=== PATIENT | female | born 1935 | race Caucasian/White ===

== ENCOUNTER 2021-01-13 00:12 | Observation (INO) ==
[2021-01-13] MEDS ORDERED: 0.9 % SODIUM CHLORIDE 1,000 ML IV ONE (00:21)
--- NOTE | 2021-01-13 00:26 | Emergency Department Note ---
HPI General Chief complaint: Syncope Stated complaint: fall Time Seen by Provider: 01/13/21 00:21 Source: patient and EMS Mode of arrival: EMS Limitations: no limitations History of Present Illness HPI Narrative: 85-year-old female with past medical history of afib, pacemaker, and dementia presenting after a syncopal episode. Patient was discharged from the ED earlier in the evening after right-sided epistaxis. The bleeding was controlled and she went home with her son. When she got home she was trying to get up to go to the bathroom when she fell out of the chair and forward onto the floor. She does not think she hit her head or passed out, however on EMS arrival they report she was unconscious until she was loaded into the ambulance. Patient is awake and alert here. She endorses pain in her left hip and left knee. She also endorses mild right-sided posterior neck pain and a mild headache. Denies dizziness, chest pain, shortness of breath, abdominal pain, or other extremity pain. She has chronic low back pain which is unchanged. She does endorse some urinary frequency. She is on Eliquis for afib. Patient states she may have swallowed a lot of blood today while she was having epistaxis. No recent fever, cough, or shortness of breath. Related Data Home Medications Medication Instructions Recorded Confirmed nitroglycerin 0.4 mg sublingual 0.4 mg SL PRN PRN 06/28/17 09/12/20 tablet apixaban 5 mg tablet 5 mg PO BID 10/22/17 09/12/20 omega-3 fatty acids-fish oil PO QDAY 10/16/18 09/12/20 donepezil 5 mg tablet 10 mg PO QDAY tab 04/14/19 09/12/20 memantine 10 mg tablet 10 mg PO BID 07/14/19 09/12/20 potassium chloride 10 mEq 20 meq PO DAILY tab 07/14/19 09/12/20 tablet,extended release choline [id number] tab PO 11/17/19 09/12/20 tablet Previous Rx's Medication Instructions Recorded blood sugar diagnostic (Contour #50 each 09/20/20 Next Test Strips) blood-glucose meter #1 each 09/20/20 alendronate 70 mg tablet 70 mg PO QWEEK #14 tab 09/29/20 sitagliptin 50 mg tablet (Januvia) 50 mg PO QDAY #30 tab 11/17/20 losartan 100 See Rx Instructions .ROUTE 12/14/20 mg-hydrochlorothiazide 12.5 mg .COMPLEX #90 tab tablet atorvastatin 10 mg tablet See Rx Instructions .ROUTE 01/10/21 .COMPLEX #30 tab metoprolol succinate 100 mg See Rx Instructions .ROUTE 01/10/21 tablet,extended release 24 hr .COMPLEX #30 tab oxybutynin chloride 10 mg See Rx Instructions .ROUTE 01/10/21 tablet,extended release 24 hr .COMPLEX #30 tab Allergies Allergy/AdvReac Type Severity Reaction Status Date / Time WAYNE Inhibitors Allergy Unknown Cough Verified 01/12/21 19:04 Sulfa (Sulfonamide AdvReac Unknown Itching Verified 01/12/21 19:04 Antibiotics) Review of Systems ROS ROS Narrative: Narrative: Constitutional: Denies fever or chills Eyes: Denies vision change ENT ED: Denies throat pain Cardiovascular: Reports syncope; Denies chest pain or palpitations Respiratory: Denies shortness of breath or cough Gastrointestinal: Denies abdominal pain, nausea or vomiting Genitourinary: Reports frequency; Denies dysuria Musculoskeletal: Reports back pain and joint pain Integumentary: Denies rash Neurological: Reports headache and weakness; Denies numbness or dizziness Psychiatric: Denies anxiety Hematological/Lymphatic: Reports easy bleeding PFSH Narrative Patient History Narrative: Narrative: Medical/Surgical/Family History All Active Problems (Updated 01/13/21 @ 05:11 by Aleksandr Neumann MD) Right-sided epistaxis (Acute) Syncope (Acute) Right-sided epistaxis (Acute) Weakness (Acute) Leg edema, right (Acute) Abbott's palsy (Acute) Urinary urgency (Acute) Dementia (Chronic) Precancerous skin lesion (Chronic) Tinnitus (Chronic) Angina pectoris (Chronic) Arthralgia (Chronic) Dyspnea on exertion (Chronic) Fatigue (Chronic) Encounter for long-term (current) use of other medications (Chronic) Rotator cuff tear (Chronic) Sinus bradycardia (Chronic) Allergic dermatitis (Chronic) DDD (degenerative disc disease) (Chronic) Hip pain (Chronic) Headache (Chronic) Other specified disorders of liver (Chronic) Grief reaction (Chronic) Urinary frequency (Chronic) Lumbar back pain (Chronic) Infiltrating ductal carcinoma of breast (Chronic) Depression with anxiety (Chronic) Knee pain, right (Chronic) Bradycardia (Chronic) Osteoporosis (Chronic) Memory loss (Chronic) Wellness examination (Chronic) Pain, joint, shoulder, left (Chronic) Bronchitis (Chronic) Hyperlipidemia (Chronic) Prediabetes (Chronic) HTN (hypertension) (Chronic) Knee pain, left (Chronic) Joint effusion, knee (Chronic) Orthostatic hypotension (Chronic) Hepatic hemangioma (Chronic) Hypokalemia (Chronic) Stable angina (Chronic) Atrial fibrillation with RVR (Chronic) Angina pectoris, unspecified (Chronic) Fall (Chronic) Syncope due to orthostatic hypotension (Chronic) Cardiac pacemaker in situ (Chronic) Liver mass (Chronic) Medical History (Updated 01/13/21 @ 05:11 by Aleksandr Neumann MD) Allergic dermatitis Angina pectoris Arthralgia Back pain Abbott's palsy Bradycardia Bronchitis DDD (degenerative disc disease) Dementia Depression with anxiety Dyspnea on exertion Encounter for long-term (current) use of other medications Fatigue Grief reaction Headache Hepatic hemangioma Hip pain HTN (hypertension) Hx of adenomatous colonic polyps Hyperlipidemia Hypokalemia Infiltrating ductal carcinoma of breast Joint effusion, knee Knee pain, left Knee pain, right Leg edema, right Lumbar back pain Memory loss Meningitis Orthostatic hypotension Osteoporosis Other specified disorders of liver Pain, joint, shoulder, left Precancerous skin lesion BACK, TO DR RAMIREZ Prediabetes Rotator cuff tear Sinus bradycardia Tinnitus Urinary frequency Urinary urgency Wellness examination Surgical History History of permanent cardiac pacemaker placement (~06/2017) Dual chamber pacer implantation History of surgery (~1956) 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 Post lumpectomy Rt outer quadrant. Dr Nevarez Hx of total hysterectomy (~1968) Family History Grandmother Diabetes Mother Breast cancer Depression Grandfather Depression Social History Smoking Status: Former smoker Alcohol Intake Frequency: does not drink Substance Use: does not use Exam Narrative Narrative: Narrative: General Limitations: no limitations General appearance: Present alert and in no apparent distress Head Head: Present atraumatic and normocephalic Eye Eye: Present normal appearance, PERRL and EOMI; Absent scleral icterus, con junctival injection or nystagmus ENT ENT: Present normal oropharynx, mucous membranes moist and other (Dried blood present in right nostril, no active bleeding) Neck Neck: Present normal inspection, trachea midline and tenderness (Over the midline cervical spine area) Chest Chest: Present normal inspection and symmetric chest wall rise Respiratory Respiratory: Present normal lung sounds bilaterally; Absent respiratory distress, wheezes, stridor or accessory muscle use Cardiovascular Cardiovascular: Present regular rate and normal rhythm; Absent systolic murmur or diastolic murmur Adbominal Abdominal: Present soft; Absent distention, tenderness, guarding, rebound, rigidity or mass Extremities Extremities: Present other Expanded Lower Extremity Hip/Pelvis: Present other (Tenderness over the lateral left hip. No deformity or ecchymosis noted.) Knee: Present other (Tenderness anteriorly of the left knee with mild swelling but no abrasions. She is able to flex and extend the knee however it is painful.) Ankle: Present normal inspection; Absent tenderness Foot/toe: Present normal inspection and other (2+ DP pulses bilaterally; lower extremity sensation intact); Absent tenderness Back Back: Present normal inspection and other (No deformities or bruising noted); Absent CVA tenderness (R), CVA tenderness (L) or spinous process tenderness Neurological Neurological: Present alert, CN II-XII intact and other (Oriented x2) Expanded Neurological Patient oriented to: Present person and place Speech: Absent dysarthria CEREBELLAR FUNCTION: finger to nose: Normal Motor strength - LUE: 5/5 Motor strength - RUE: 5/5 Motor strength - LLE: 5/5 Motor strength - RLE: 5/5 SENSORY EXAM UPPER EXTREMITY: Normal: light touch SENSORY EXAM LOWER EXTREMITY: Normal: light touch Coma Scale Eye Opening: Spontaneous Coma Scale Motor Response: Obeys Commands Coma Scale Verbal Response: Oriented Coma Scale Total: 15 Psychiatric Psychiatric: Present normal affect and normal mood Skin Skin: Present warm (WNL) and dry Course Consultations Consultation #1: Dr. Addison, hospitalist Time: 03:57 Vital Signs Vital signs: Vital Signs Temperature 97.4 F 01/13/21 00:17 Pulse Rate 69 01/13/21 00:17 Respiratory Rate 16 01/13/21 00:17 Blood Pressure 134/77 01/13/21 00:17 Pulse Oximetry (%) 94 01/13/21 00:17 Temperature 97.4 F 01/13/21 04:46 Pulse Rate 67 01/13/21 04:46 Respiratory Rate 16 01/13/21 04:46 Blood Pressure 112/74 01/13/21 04:46 Pulse Oximetry (%) 95 01/13/21 04:46 MDM MDM Narrative Medical decision making narrative: 85-year-old female presenting after a syncopal episode and fall. She was reportedly unconscious at the scene for a few minutes. She is awake and at her baseline here in the ED. EKG with no ischemic changes. Will obtain labs, urine dip, imaging, and reassess. Normal saline bolus ordered. Labs notable for hemoglobin of 11.8, her baseline seems to be around 14. Drop in hemoglobin likely due to acute blood loss from epistaxis. While in the ED patient's right epistaxis did start oozing again but I was able to cauterize the area with silver nitrate. Bleeding has resolved. Attempted to have patient stand and ambulate but she still feels very weak. Patient lives at home alone and will likely not be able to take care of herself. She also did have a syncopal episode with a prolonged period of unconsciousness. Given this, will admit for syncope and further monitoring. Patient discussed w augusta Addison, admitting hospitalist. Holding orders placed. Lab Data Lab results reviewed: Yes I reviewed the patient's lab results. Result diagrams: 01/13/21 00:37 01/13/21 00:37 Labs: Lab Results 01/13/21 01/13/21 01/13/21 Range/Units 00:37 00:37 00:37 WBC 8.3 (4.5-11.0) K/mcL RBC 3.80 (3.59-5.38) M/mcL Hgb 11.8 (11.2-15.7) g/dL Hct 34.5 (34.1-44.9) % MCV 90.8 (80.0-100.0) fL MCH 31.1 (26.0-34.0) pg MCHC 34.2 (31.0-36.0) g/dL RDW 12.5 (11.5-14.5) % Plt Count 218 (140-440) K/mcL MPV 9.8 (7.4-10.4) fL Neut % (Auto) 72.0 (38.0-78.0) % Lymph % (Auto) 19.1 (15.5-49.0) % [place] % (Auto) 6.8 (1.0-12.0) % Eos % (Auto) 1.9 (0.0-7.0) % Baso % (Auto) 0.2 (0.0-2.0) % Lymph # (Auto) 1.58 (1.50-4.80) K/mcL [place] # (Auto) 0.56 (0.10-0.90) K/mcL Eos # (Auto) 0.16 (0.00-0.70) K/mcL Baso # (Auto) 0.02 (0.00-0.30) K/mcL Absolute Neutrophils 5.94 (1.80-8.00) K/mcL Sodium 140 (133-145) mmol/L Potassium 3.9 (3.3-5.1) mmol/L Chloride 103 (96-108) mmol/L Carbon Dioxide 26 (22-30) mmol/L Anion Gap 11.0 (8.0-16.0) BUN 16 (8-23) mg/dL Creatinine 0.7 (0.6-1.1) mg/dL GFR Calculation 78 Glucose 234 H (70-105) mg/dL Calcium 8.9 (8.6-10.4) mg/dL Total Bilirubin 0.5 (0.1-1.0) mg/dL AST 20 (<32) U/L ALT 14 (<40) U/L Alkaline Phosphatase 42 (39-117) U/L Troponin T < 0.01 (<0.03) ng/mL Total Protein 6.2 (5.9-8.4) gm/dL Albumin 3.8 (3.2-5.2) gm/dL Globulin 2.4 (2.2-3.7) gm/dL Albumin/Globulin Ratio 1.6 (1.0-2.3) ED POC Tests ED POC Tests: HARRISON - Influenza A Negative HARRISON - Influenza B Negative HARRISON - SARS Antigen Negative Radiology Data Radiology results reviewed: Yes I reviewed the patient's radiology results. Radiology results narrative: XR L knee: Degenerative changes but no acute definitive fracture noted, per my interpretation. XR L hip: No acute fracture noted, per my interpretation. CT brain without contrast: No acute intracranial abnormality, per outside radiology interpretation. CT cervical spine without contrast: No acute fracture or dislocation, per outside radiology interpretation. EKG Data EKG #1: EKG attestation: Yes I reviewed and interpreted this EKG. and Yes There are no EKG findings of acute coronary syndrome EKG results narrative: Sinus rhythm at [address] elevation or depression. QRS is normal. Interpretation: no acute changes Procedures Epistaxis Control Nostril: right Direct Inspection: yes and anterior source identified Cautery Used: silver nitrate Patient Tolerated Procedure: well Discharge Plan Patient/Caregiver Discharge Instructions Pt seen by CRAFT DEMONSTRATOR/PA only: No Clinical Impression: Syncope, Right-sided epistaxis, Weakness Patient Disposition: Xfer As Inpt ([facility]) Condition: Fair Discharge Date/Time: 01/13/21 04:46 Discharge Location: [facility] Inpatient Discharge Comment: To room 112 [facility] tele
[2021-01-13 01:00] LABS: Basophils # (Auto) 0.02 K/mcL (0.00-0.30); Basophils % (Auto) 0.2 % (0.0-2.0); Eosinophils # (Auto) 0.16 K/mcL (0.00-0.70); Eosinophils % (Auto) 1.9 % (0.0-7.0); Hematocrit 34.5 % (34.1-44.9); Hemoglobin 11.8 g/dL (11.2-15.7); Lymphocytes # (Auto) 1.58 K/mcL (1.50-4.80); Lymphocytes % (Auto) 19.1 % (15.5-49.0); Mean Cell Volume 90.8 fL (80.0-100.0); Mean Corpuscular HGB Conc 34.2 g/dL (31.0-36.0); Mean Platelet Volume 9.8 fL (7.4-10.4); Monocytes # (Auto) 0.56 K/mcL (0.10-0.90); Monocytes % (Auto) 6.8 % (1.0-12.0); Platelet Count 218 K/mcL (140-440); Red Cell Distribution Width 12.5 % (11.5-14.5); WBC 8.3 K/mcL (4.5-11.0)
[2021-01-13 01:18] LABS: ALT/SGPT 14 U/L (<40); AST/SGOT 20 U/L (<32); Albumin 3.8 gm/dL (3.2-5.2); Albumin/Globulin Ratio 1.6 (1.0-2.3); Alkaline Phosphatase 42 U/L (39-117); Bilirubin,Total 0.5 mg/dL (0.1-1.0); Blood Urea Nitrogen 16 mg/dL (8-23); Calcium 8.9 mg/dL (8.6-10.4); Carbon Dioxide 26 mmol/L (22-30); Chloride 103 mmol/L (96-108); Globulin 2.4 gm/dL (2.2-3.7); Glomerular Filtration Rate 78; Glucose 234 mg/dL (70-105)
[2021-01-13] MEDS ORDERED: 0.9 % SODIUM CHLORIDE 1,000 ML BAG IV SCH (04:00)
--- NOTE | 2021-01-13 06:18 | Cat Scan Report ---
INDICATION: syncope, fall, on eliquis COMPARISON: Previous examination dated 08/02/2017 TECHNIQUE: Axial noncontrast-enhanced images through the brain. Sagittally and coronally reformatted images. FINDINGS: Examination was initially interpreted by [facility] Cerebral hemispheres:No acute intra-axial hemorrhage. No acute attenuation abnormality or localized mass effect. No midline shift. There is cerebral atrophy. There is mild periventricular white matter abnormality. There is a nonacute infarction involving the head of the right caudate and the right lentiform nuclei. This is unchanged. No acute intra-axial abnormality. Brainstem and cerebellum:No intra-axial abnormality Extra-axial:No acute hemorrhage. No subdural or epidural hematoma. No subarachnoid hemorrhage. Basilar cisterns are normal Calvarial:No calvarial fracture. No lytic lesion Temporal bones are negative. No destructive lesions. There is fragmentation of the odontoid process may represent an os odontoideum. This is not an acute fracture Soft tissue, orbits, sinuses:Air-fluid level within the maxillary sinuses consistent with acute sinusitis IMPRESSION: 1. No acute intracranial hemorrhage 2. 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 Acute maxillary sinusitis The exam was performed using radiation dose optimization techniques including, but not limited to, automated exposure control, adjustment of the mA and/or kV according to patient size and use of iterative reconstruction technique. Interpreted and Authenticated by: Hamzah Pennington 01/13/21
--- NOTE | 2021-01-13 06:37 | Cat Scan Report ---
INDICATION: syncope, fall, neck pain COMPARISON: None. TECHNIQUE: Axial thin section images through the cervical spine. Sagittally and coronally reformatted images. The exam was performed using radiation dose optimization techniques including, but not limited to, automated exposure control, adjustment of the mA and/or kV according to patient size and use of iterative reconstruction technique. FINDINGS: Examination was initially interpreted by [facility] Vertebral bodies, spinous processes:No vertebral body or spinous process fracture. No acute abnormality. Alignment is anatomic without anterolisthesis No odontoid fracture. There is a probable os odontoideum. No fracture. Occipital condyles and C1 are negative. No atlantoaxial subluxation. Facets:No perched or locked facet. No facet complex fracture. Disc spaces:Severe degenerative disc disease at C5-6 Temporal bones:Negative. No basilar skull fracture Cervical soft tissues:Negative. No prevertebral soft tissue swelling. No focal soft tissue mass or acute abnormality Lung apices:No pneumothorax. No pulmonary contusion. IMPRESSION: No cervical spine fracture. No acute posttraumatic abnormality Interpreted and Authenticated by: Hamzah Pennington 01/13/21
--- NOTE | 2021-01-13 06:41 | XRay Report ---
INDICATION: fall, L leg pain TECHNIQUE: AP pelvis. AP and lateral left hip COMPARISON: Previous examination dated 12/25/2018 FINDINGS: Negative pelvis. No pelvic fracture. Sacrum is negative. There is degenerative disc disease in the lower lumbar spine There is degenerative disease in both hips. Appearance is essentially unchanged. No acute hip fracture. No interval change IMPRESSION: 1. No acute hip fracture 2. Degenerative joint disease 3. No significant interval change since 12/25/2018 Interpreted and Authenticated by: Hamzah Pennington 01/13/21
--- NOTE | 2021-01-13 06:43 | XRay Report ---
INDICATION: fall, L knee pain TECHNIQUE: AP, oblique, lateral left knee COMPARISON: Previous examination dated 04/30/2017 FINDINGS: Skeletal: Negative. Distal femur, proximal tibia, proximal fibula are negative. No fracture. No significant osteochondral lesion. Joint spaces: Severe degenerative joint space narrowing in the patellofemoral joint. Mild degenerative joint disease in the medial and lateral femoral tibial joints. There is mild chondrocalcinosis. Suprapatellar recess, periarticular soft tissues: No detectable joint effusion. No periarticular soft tissue abnormality IMPRESSION: 1. Degenerative joint disease 2. No left knee fracture Interpreted and Authenticated by: Hamzah Pennington 01/13/21
[2021-01-13] MEDS ORDERED: DEXTROSE 50% 50 ML VIAL IV PRN (08:00)
[2021-01-13] MEDS ORDERED: BISACODYL 10 MG SUPP.RECT PR PRN (08:00)
[2021-01-13] MEDS ORDERED: ONDANSETRON 4 MG ODT TABLET SL PRN (08:00)
[2021-01-13] MEDS ORDERED: NON FORMULARY MEDICATION 1 DOSE MISCELL (Losartan-Hydrochlorothiazide 100-12.5 mg tablet) SCH (08:00)
[2021-01-13] MEDS ORDERED: POTASSIUM CHLORIDE 40 MEQ in DEXTROSE 5% IN WATER 500 ML IV PRN (08:00)
[2021-01-13] MEDS ORDERED: DEXTROSE 31 GM ORAL.SUSP PO PRN (08:00)
[2021-01-13] MEDS ORDERED: MAGNESIUM SULFATE 2 GM/50 ML BAG IV PRN (08:00)
[2021-01-13] MEDS ORDERED: POLYETHYLENE GLYCOL 3350 17 GM PACKET PO PRN (08:00)
[2021-01-13] MEDS ORDERED: guaiFENesin/CODEINE 10 ML UDC PO PRN (08:00)
[2021-01-13] MEDS ORDERED: ACETAMINOPHEN 650 MG/65 ML BAG IV PRN (08:00)
[2021-01-13] MEDS ORDERED: ONDANSETRON 4 MG/2 ML VIAL IV PRN (08:00)
--- NOTE | 2021-01-13 10:52 | Internal Med History&Physical ---
HPI History of Present Illness Patient information: Note initiated : 01/13/21 at 10:47 am Service Date, if different from initiated Date: [] Patient: Fatimah Smith a 85 y/o F admitted on 01/13/21 for fall. Chief Complaint: [] History of present illness: Ms. Smith is a 85 year old F with a history of dementia, A. fib on anticoagulation/pacemaker, generalized weakness who presented following a near syncopal episode today witnessed by son while she was trying to get out of chair. patient was recently in the ER for epistaxis earlier in the evening and after initial work-up/treatment was discharged home. While at home she started experiencing nasal bleed and has been pinching the nares. She apparently kept swallowing the postnasal blood drip and became extremely nauseous along with associated reddish bowel movement. She became extremely weak and slumped off the chair on the ground however did not lose consciousness. She was observed to be delirious by her son and prompting him to bring her back to the ER Initial work-up was consistent with persistent right nasal bleeding and underwent cauterization/nasal packing for epistaxis. Neuroimaging was unremarkable. hospitalist service was consulted for admission/observation and e valuation of cause of syncope. Patient is currently on anticoagulation apixaban At the time of my evaluation patient is minimally confused. She was able to answer some of the questions. She denies events leading to the episode. She denies headache, unilateral weakness, incontinence, seizure-like episode. She further denies chest pain, cough, fever Review of systems 10 point review system was performed and is negative except for ones discussed above PFSH PFSH All Active Problems (Updated 01/13/21 @ 05:11 by Aleksandr Neumann MD) Right-sided epistaxis (Acute) Syncope (Acute) Right-sided epistaxis (Acute) Weakness (Acute) Leg edema, right (Acute) Abbott's palsy (Acute) Urinary urgency (Acute) Dementia (Chronic) Precancerous skin lesion (Chronic) Tinnitus (Chronic) Angina pectoris (Chronic) Arthralgia (Chronic) Dyspnea on exertion (Chronic) Fatigue (Chronic) Encounter for long-term (current) use of other medications (Chronic) Rotator cuff tear (Chronic) Sinus bradycardia (Chronic) Allergic dermatitis (Chronic) DDD (degenerative disc disease) (Chronic) Hip pain (Chronic) Headache (Chronic) Other specified disorders of liver (Chronic) Grief reaction (Chronic) Urinary frequency (Chronic) Lumbar back pain (Chronic) Infiltrating ductal carcinoma of breast (Chronic) Depression with anxiety (Chronic) Knee pain, right (Chronic) Bradycardia (Chronic) Osteoporosis (Chronic) Memory loss (Chronic) Wellness examination (Chronic) Pain, joint, shoulder, left (Chronic) Bronchitis (Chronic) Hyperlipidemia (Chronic) Prediabetes (Chronic) HTN (hypertension) (Chronic) Knee pain, left (Chronic) Joint effusion, knee (Chronic) Orthostatic hypotension (Chronic) Hepatic hemangioma (Chronic) Hypokalemia (Chronic) Stable angina (Chronic) Atrial fibrillation with RVR (Chronic) Angina pectoris, unspecified (Chronic) Fall (Chronic) Syncope due to orthostatic hypotension (Chronic) Cardiac pacemaker in situ (Chronic) Liver mass (Chronic) Medical History (Updated 01/13/21 @ 05:11 by Aleksandr Neumann MD) Allergic dermatitis Angina pectoris Arthralgia Back pain Abbott's palsy Bradycardia Bronchitis DDD (degenerative disc disease) Dementia Depression with anxiety Dyspnea on exertion Encounter for long-term (current) use of other medications Fatigue Grief reaction Headache Hepatic hemangioma Hip pain HTN (hypertension) Hx of adenomatous colonic polyps Hyperlipidemia Hypokalemia Infiltrating ductal carcinoma of breast Joint effusion, knee Knee pain, left Knee pain, right Leg edema, right Lumbar back pain Memory loss Meningitis Orthostatic hypotension Osteoporosis Other specified disorders of liver Pain, joint, shoulder, left Precancerous skin lesion BACK, TO DR RAMIREZ Prediabetes Rotator cuff tear Sinus bradycardia Tinnitus Urinary frequency Urinary urgency Wellness examination Surgical History History of permanent cardiac pacemaker placement (~06/2017) Dual chamber pacer implantation History of surgery (~1956) 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 Post lumpectomy Rt outer quadrant. Dr Nevarez Hx of total hysterectomy (~1968) Family History Grandmother Diabetes Mother Breast cancer Depression Grandfather Depression Social History lives independently: Yes marital status: occupational status: retired physical activity: walking alcohol intake frequency: does not drink substance use type: does not use MEDS/ALLERGIES Home Medications and Allergies Home Medications Medication Instructions Recorded Confirmed Type nitroglycerin 0.4 mg sublingual 0.4 mg SL PRN PRN 06/28/17 01/13/21 History tablet apixaban 5 mg tablet 5 mg PO BID 10/22/17 01/13/21 History omega-3 fatty acids-fish oil 1 caplet PO QDAY 10/16/18 01/13/21 History donepezil 5 mg tablet 10 mg PO QDAY tab 04/14/19 01/13/21 History memantine 10 mg tablet 10 mg PO BID 07/14/19 01/13/21 History potassium chloride 10 mEq 20 meq PO DAILY tab 07/14/19 01/13/21 History tablet,extended release choline [id number] tab PO 11/17/19 09/12/20 History tablet blood sugar diagnostic (Contour #50 each 09/20/20 Rx Next Test Strips) blood-glucose meter #1 each 09/20/20 Rx alendronate 70 mg tablet 70 mg PO QWEEK #14 tab 09/29/20 01/13/21 Rx sitagliptin 50 mg tablet (Januvia) 50 mg PO QDAY #30 tab 11/17/20 01/13/21 Rx losartan 100 See Rx Instructions .ROUTE 12/14/20 01/13/21 Rx mg-hydrochlorothiazide 12.5 mg .COMPLEX #90 tab tablet atorvastatin 10 mg tablet See Rx Instructions .ROUTE 01/10/21 01/13/21 Rx .COMPLEX #30 tab metoprolol succinate 100 mg See Rx Instructions .ROUTE 01/10/21 01/13/21 Rx tablet,extended release 24 hr .COMPLEX #30 tab oxybutynin chloride 10 mg See Rx Instructions .ROUTE 01/10/21 01/13/21 Rx tablet,extended release 24 hr .COMPLEX #30 tab Allergies Allergy/AdvReac Type Severity Reaction Status Date / Time WAYNE Inhibitors AdvReac Mild Cough Verified 01/13/21 08:04 Sulfa (Sulfonamide AdvReac Mild Itching Verified 01/13/21 08:04 Antibiotics) EXAM Constitutional Vitals: Temp Pulse Resp BP Pulse Ox 98.1 F 58 L 16 151/73 95 01/13/21 08:01 01/13/21 08:01 01/13/21 08:01 01/13/21 08:01 01/13/21 08:01 Alert but intimately confused Head normocephalic Oral cavity moist No ear discharge, right nasal packing with bloody oozing Eye no subconjunctival pallor, movement symmetrical S1-S2 irregular, left anterior chest pacemaker Nonlabored breathing Nondistended nontender abdomen Lower extremity no cyanosis clubbing or joint swelling Skin no suspicious lesion Psych anxious but no hallucination Neuro moving all four extremities, GCS 11 DATA Data Completed and Pending Labs: Labs from last 24 hours 01/13/21 01/13/21 01/13/21 00:37 00:37 00:37 WBC 8.3 RBC 3.80 Hgb 11.8 Hct 34.5 MCV 90.8 MCH 31.1 MCHC 34.2 RDW 12.5 Plt Count 218 MPV 9.8 Neut % (Auto) 72.0 Lymph % (Auto) 19.1 [place] % (Auto) 6.8 Eos % (Auto) 1.9 Baso % (Auto) 0.2 Lymph # (Auto) 1.58 [place] # (Auto) 0.56 Eos # (Auto) 0.16 Baso # (Auto) 0.02 Absolute Neutrophils 5.94 Sodium 140 Potassium 3.9 Chloride 103 Carbon Dioxide 26 Anion Gap 11.0 BUN 16 Creatinine 0.7 GFR Calculation 78 Glucose 234 H Calcium 8.9 Total Bilirubin 0.5 AST 20 ALT 14 Alkaline Phosphatase 42 Troponin T < 0.01 Total Protein 6.2 Albumin 3.8 Globulin 2.4 Albumin/Globulin Ratio 1.6 A/P Narrative A/P Narrative: * Syncope-unclear etiology possibly bleeding versus cardiac cause. Admit under telemetry monitored unit. Close hemodynamic monitoring. Echocardiogram. * Epistaxis right naris, hold anticoagulation, status post cautery nasal packing by ER physician * History atrial fibrillation rate controlled on metoprolol * History of hypertension on losartan/thiazide/metoprolol * Dementia on memantine/donepezil * Anticoagulation for CVA prophylaxis currently held in light of nasal bleed * Prophylax SCDs Plan * Observation admit * Monitor epistaxis * Hold anticoagulation * Telemetry monitoring * Echocardiogram * Pre-existing medical condition management home medications * Nutrition support/physical therapy * Discharge planning Time Spent With Patient Time: Total time spent is greater than 50% in coordination of care (as documented) at patient's floor/unit and/or counseling patient: Total time spent with greater than 50% in coordination of care (as documented) at patient's floor/unit and/or counseling patient:: Greater than 35 minutes
[2021-01-13] MEDS: POTASSIUM CHLORIDE 10 MEQ TABLET PO SCH (10:59)
[2021-01-13] MEDS: METOPROLOL SUCCINATE 50 MG TAB.XL.24H PO SCH (11:00)
[2021-01-13] MEDS: ACETAMINOPHEN 325 MG TABLET PO PRN ×3 (11:01→21:48)
[2021-01-13] MEDS: DOCUSATE SODIUM 100 MG CAPSULE PO SCH ×2 (11:01→21:48)
[2021-01-13] MEDS: sitaGLIPtin 50 MG TABLET PO SCH (11:01)
[2021-01-13] MEDS: MULTIVIT,THER IRON,CA,FA & MIN 1 TABLET PO SCH (11:01)
[2021-01-13] MEDS: LOSARTAN 50 MG TABLET PO SCH (11:02)
[2021-01-13] MEDS: MEMANTINE 10 MG TABLET PO SCH ×2 (11:02→21:48)
[2021-01-13] MEDS: HYDROCHLOROTHIAZIDE 12.5 MG CAPSULE PO SCH (11:02)
[2021-01-13] MEDS: INSULIN LISPRO 1 UNIT/0.01 ML UNIT SQ SCH ×3 (12:26→21:49)
[2021-01-13] MEDS: 0.9 % SODIUM CHLORIDE 10 ML SYRINGE IV SCH ×2 (13:45→21:50)
--- NOTE | 2021-01-13 16:15 | Ultrasound Report ---
INDICATION: syncope COMPARISON: None. TECHNIQUE: Carotid arteries were imaged in sagittal and transverse planes using 5 mHz linear probe: Doppler, color, and 2D. FINDINGS: Mild atherosclerotic plaque in the proximal right common carotid artery. Mild plaque in the proximal right internal carotid artery. There is mild plaque in the distal left common carotid artery and proximal left internal carotid artery. No significant flow disturbance. No evidence for stenosis. No detectable ulceration Maximum Systolic Flow Velocity: - Right common carotid artery: 45 cm/sec - Right internal carotid artery: 48 cm/sec - Left common carotid artery: 50 cm/sec - Left internal carotid artery: 49 cm/sec Vertebral arteries are antegrade patent IMPRESSION: 1. Mild atherosclerotic plaque bilaterally 2. No significant flow disturbance. No hemodynamically significant stenosis Interpreted and Authenticated by: Hamzah Pennington 01/13/21
[2021-01-13] MEDS: MELATONIN 3 MG TABLET PO PRN (21:48)
[2021-01-13] MEDS: SENNOSIDES/DOCUSATE SODIUM 1 TAB TABLET PO SCH (21:48)
[2021-01-13] MEDS: ATORVASTATIN 10 MG TABLET PO SCH (21:48)
[2021-01-13] MEDS: DONEPEZIL 10 MG TABLET PO SCH (21:48)
[2021-01-14] MEDS: 0.9 % SODIUM CHLORIDE 10 ML SYRINGE IV SCH ×3 (05:11→20:46)
[2021-01-14 07:10] LABS: Basophils # (Auto) 0.02 K/mcL (0.00-0.30); Basophils % (Auto) 0.3 % (0.0-2.0); Eosinophils # (Auto) 0.18 K/mcL (0.00-0.70); Eosinophils % (Auto) 2.3 % (0.0-7.0); Hematocrit 27.9 % (34.1-44.9); Hemoglobin 9.4 g/dL (11.2-15.7); Lymphocytes # (Auto) 1.99 K/mcL (1.50-4.80); Lymphocytes % (Auto) 25.7 % (15.5-49.0); Mean Cell Volume 90.9 fL (80.0-100.0); Mean Corpuscular HGB Conc 33.7 g/dL (31.0-36.0); Mean Platelet Volume 9.9 fL (7.4-10.4); Monocytes # (Auto) 0.72 K/mcL (0.10-0.90); Monocytes % (Auto) 9.3 % (1.0-12.0); Neutrophils % (Auto) 62.4 % (38.0-78.0); Platelet Count 193 K/mcL (140-440); RBC 3.07 M/mcL (3.59-5.38); Red Cell Distribution Width 12.9 % (11.5-14.5); WBC 7.7 K/mcL (4.5-11.0)
[2021-01-14 07:40] LABS: ALT/SGPT 11 U/L (<40); AST/SGOT 16 U/L (<32); Albumin 3.3 gm/dL (3.2-5.2); Albumin/Globulin Ratio 1.4 (1.0-2.3); Alkaline Phosphatase 37 U/L (39-117); Bilirubin,Direct < 0.2 mg/dL (0-0.3); Bilirubin,Total 0.6 mg/dL (0.1-1.0); Blood Urea Nitrogen 13 mg/dL (8-23); Calcium 8.6 mg/dL (8.6-10.4); Carbon Dioxide 23 mmol/L (22-30); Chloride 104 mmol/L (96-108); Globulin 2.3 gm/dL (2.2-3.7); Glomerular Filtration Rate 87; Glucose 120 mg/dL (70-105); Lactate Dehydrogenase 157 U/L (135-225); Phosphorous 3.1 mg/dL (2.5-4.5); Triglycerides 161 mg/dL (<150); Uric Acid 3.4 mg/dL (2.5-8.0)
[2021-01-14] MEDS: INSULIN LISPRO 1 UNIT/0.01 ML UNIT SQ SCH ×4 (07:50→20:45)
--- NOTE | 2021-01-14 09:10 | Internal Med Progress Note ---
SUBJECTIVE Subjective Patient information: Note initiated : 01/14/21 at 9:06 am Service Date, if different from initiated Date: [] Patient: Fatimah Smith a 85 y/o F admitted on 01/13/21 for fall. Chief Complaint: [] Interval history: Ms. Smith is a 85 year old F with a history of dementia, A. fib on anticoagulation/pacemaker, generalized weakness who presented following a near syncopal episode today witnessed by son while she was trying to get out of chair. patient was recently in the ER for epistaxis earlier in the evening and after initial work-up/treatment was discharged home. While at home she started experiencing nasal bleed and has been pinching the nares. She apparently kept swallowing the postnasal blood drip and became extremely nauseous along with associated reddish bowel movement. She became extremely weak and slumped off the chair on the ground however did not lose consciousness. She was observed to be delirious by her son and prompting him to bring her back to the ER Initial work-up was consistent with persistent right nasal bleeding and underwent cauterization/nasal packing for epistaxis. Neuroimaging was unremarkable. hospitalist service was consulted for admission/observation and evaluation of cause of syncope. Patient is currently on anticoagulation apixaban At the time of my evaluation patient is minimally confused. She was able to answer some of the questions. She denies events leading to the episode. She denies headache, unilateral weakness, incontinence, seizure-like episode. She further denies chest pain, cough, fever 01/14-patient remains disoriented and confused. However epistaxis resolved. Resting comfortably. No overnight events, no concerns per staff. Stable hemodynamics and labs, hemoglobin down to 9.4, carotid Dopplers unremarkable, echo pending Constitutional Vitals: Vital Signs Temp Pulse Resp BP Pulse Ox 99.5 F H 60 17 133/62 95 01/14/21 07:00 01/14/21 07:00 01/14/21 07:00 01/14/21 07:00 01/14/21 07:00 Period Temp Pulse Resp BP Sys/Lo Pulse Ox Last 24 Hr 97.9 F-99.5 F 60-75 14-20 96-146/49-81 91-96 Intake and Output 01/13/21 01/14/21 01/14/21 21:59 05:59 13:59 Intake Total 200 200 Output Total 2 302 Balance -2 -102 200 Weight 94.846 kg nondistressed, resting comfortably, no nasal bleed Nonlabored breathing Intake & Output: Intake & Output 01/13/21 01/14/21 01/14/21 21:59 05:59 13:59 Intake Total 200 200 Output Total 2 302 Balance -2 -102 200 Weight 94.846 kg Intake: Oral 200 200 Output: Void Amount 300 # of times incontinent of urine 2 2 Other: Meal Dinner Breakfast Percent of Meal Consumed 75% 75% Feeding Ability Assist with Tray Set Up Assist with Tray Set Up Urine Appearance Clear Urine Color Bright Yellow Dark Yellow Urine Odor Strong # of times incontinent of 0 Bowels OBJ DATA Labs CBC & Chem 7: 01/14/21 05:41 01/14/21 05:41 Labs: Abnormal Lab Results 01/14/21 01/14/21 01/13/21 05:41 05:41 00:37 RBC 3.07 L Hgb 9.4 L Hct 27.9 L Creatinine 0.5 L Glucose 120 H 234 H Alkaline Phosphatase 37 L Total Protein 5.6 L Triglycerides 161 H Meds: Medications Acetaminophen (Acetaminophen 325 Mg Tablet) 650 mg PO Q4-6HP PRN; Protocol PRN Reason: Per Pain Protocol/Fever > 101 Last Admin: 01/13/21 21:48 Dose: 650 mg Documented by: Alendronate Sodium (Alendronate Sodium 70 Mg Tablet) 70 mg PO Q7D [facility] Atorvastatin Calcium (Atorvastatin 10 Mg Tablet) 10 mg PO [facility] Last Admin: 01/13/21 21:48 Dose: 10 mg Documented by: Bisacodyl (Bisacodyl 10 Mg Supp.Rect) 10 mg MO Q2-3DAYS PRN PRN Reason: Constipation Dextrose (Dextrose 50% 50 Ml Vial) 0 ml IV UD PRN PRN Reason: Hypoglycemia Diagnostic Test (Pha) (Accu-Chek 1 Each Strip) 1 each FS ACHS [facility] Last Admin: 01/14/21 07:47 Dose: 1 each Documented by: Docusate Sodium (Docusate Sodium 100 Mg Capsule) 100 mg PO BID [facility] Last Admin: 01/13/21 21:48 Dose: 100 mg Documented by: Donepezil HCl (Donepezil 10 Mg Tablet) 10 mg PO [facility] Last Admin: 01/13/21 21:48 Dose: 10 mg Documented by: Glucose (Dextrose 31 Gm Oral.Susp) 15 gm PO PRN PRN PRN Reason: Hypoglycemia Guaifenesin/Codeine Phosphate (Guaifenesin/Codeine 10 Ml Udc) 10 ml PO Q4HP PRN PRN Reason: Cough Hydrochlorothiazide (Hydrochlorothiazide 12.5 Mg Capsule) 12.5 mg PO DAILY [facility] Last Admin: 01/13/21 11:02 Dose: 12.5 mg Documented by: Acetaminophen (Ofirmev) 650 mg in 65 mls @ 130 mls/hr IV Q6HP PRN; Protocol PRN Reason: Per Pain Protocol/Fever > 101 Magnesium Sulfate (Magnesium Sulfate) 2 gm in 50 mls @ 50 mls/hr IV UD PRN PRN Reason: MG = or < 1.7 Potassium Chloride 40 meq/ (Dextrose) 520 mls @ 130 mls/hr IV UD PRN PRN Reason: K+ = or < 3.5 Insulin Human Lispro (Insulin Lispro 1 Unit/0.01 Ml Unit) 0 unit SQ ACHS [facility]; Protocol Last Admin: 01/14/21 07:50 Dose: Not Given Documented by: Iron Carb/Multivit/Kenefic/Folic Acid (Multivit,Ther Iron,Ca,Fa & Min 1 Tablet) 1 tab PO DAILY [facility] Last Admin: 01/13/21 11:01 Dose: 1 tab Documented by: Losartan Potassium (Losartan 50 Mg Tablet) 100 mg PO DAILY [facility] Last Admin: 01/13/21 11:02 Dose: 100 mg Documented by: Melatonin (Melatonin 3 Mg Tablet) 3 mg PO HSP PRN PRN Reason: Insomnia Last Admin: 01/13/21 21:48 Dose: 3 mg Documented by: Memantine (Memantine 10 Mg Tablet) 10 mg PO BID [facility] Last Admin: 01/13/21 21:48 Dose: 10 mg Documented by: Metoprolol Succinate (Metoprolol Succinate 50 Mg Tab.Xl.24h) 100 mg PO DAILY [facility] Last Admin: 01/13/21 11:00 Dose: 100 mg Documented by: Ondansetron HCl (Ondansetron 4 Mg Odt Tablet) 4 mg SL Q4-6HP PRN; Protocol PRN Reason: Nausea And Vomiting Ondansetron HCl (Ondansetron 4 Mg/2 Ml Vial) 4 mg IV Q4-6HP PRN; Protocol PRN Reason: Nausea And Vomiting Polyethylene Glycol (Polyethylene Glycol 3350 17 Gm Packet) 17 gm PO DAILYP PRN PRN Reason: Constipation Potassium Chloride (Potassium Chloride 10 Meq Tablet) 20 meq PO QAC [facility] Last Admin: 01/13/21 10:59 Dose: 20 meq Documented by: Senna/Docusate Sodium (Sennosides/Docusate Sodium 1 Tab Tablet) 1 tab PO HS [facility] Last Admin: 01/13/21 21:48 Dose: 1 tab Documented by: Sitagliptin Phosphate (Sitagliptin 50 Mg Tablet) 50 mg PO QDAY [facility] Last Admin: 01/13/21 11:01 Dose: 50 mg Documented by: Sodium Chloride (0.9 % Sodium Chloride 10 Ml Syringe) 10 ml IV Q8 [facility] Last Admin: 01/14/21 05:11 Dose: 10 ml Documented by: A/P Narrative A/P Narrative: * Syncope-likely secondary to blood loss anemia, clinically improving. Stable hemodynamics. Echo pending, Doppler negative, no telemetry events * Epistaxis -spontaneous cessation noted. Anticoagulation on hold for additional 24 hours. * History atrial fibrillation rate controlled on metoprolol * Blood loss anemia hemoglobin 9.4. No indication for transfusion. * History of hypertension continue losartan/thiazide/metoprolol * Dementia on memantine/donepezil * Anticoagulation for CVA prophylaxis currently held in light of nasal bleed, restart in 24 to 48 hours * Prophylax SCDs Plan * Hold anticoagulation * Telemetry monitoring * Await echocardiogram * Pre-existing medical condition management home medications * Nutrition support/physical therapy * Discharge planning likely in 24 hours Time Spent With Patient Time: Total time spent is greater than 50% in coordination of care (as documented) at patient's floor/unit and/or counseling patient: Total time spent with greater than 50% in coordination of care (as documented) at patient's floor/unit and/or counseling patient:: Greater than 35 minutes
[2021-01-14] MEDS: DOCUSATE SODIUM 100 MG CAPSULE PO SCH ×2 (10:15→20:45)
[2021-01-14] MEDS: MULTIVIT,THER IRON,CA,FA & MIN 1 TABLET PO SCH (10:15)
[2021-01-14] MEDS: MEMANTINE 10 MG TABLET PO SCH ×2 (10:16→20:45)
[2021-01-14] MEDS: sitaGLIPtin 50 MG TABLET PO SCH (10:16)
[2021-01-14] MEDS: LOSARTAN 50 MG TABLET PO SCH (10:16)
[2021-01-14] MEDS: POTASSIUM CHLORIDE 10 MEQ TABLET PO SCH (10:17)
[2021-01-14] MEDS: METOPROLOL SUCCINATE 50 MG TAB.XL.24H PO SCH (10:17)
[2021-01-14] MEDS: HYDROCHLOROTHIAZIDE 12.5 MG CAPSULE PO SCH (10:19)
[2021-01-14] MEDS: ACETAMINOPHEN 325 MG TABLET PO PRN (17:48)
[2021-01-14] MEDS: ATORVASTATIN 10 MG TABLET PO SCH (20:45)
[2021-01-14] MEDS: DONEPEZIL 10 MG TABLET PO SCH (20:45)
[2021-01-14] MEDS: SENNOSIDES/DOCUSATE SODIUM 1 TAB TABLET PO SCH (20:45)
[2021-01-14] MEDS: MELATONIN 3 MG TABLET PO PRN (20:46)
[2021-01-15] MEDS: 0.9 % SODIUM CHLORIDE 10 ML SYRINGE IV SCH ×3 (05:21→21:22)
[2021-01-15 06:58] LABS: Basophils # (Auto) 0.01 K/mcL (0.00-0.30); Basophils % (Auto) 0.2 % (0.0-2.0); Eosinophils # (Auto) 0.16 K/mcL (0.00-0.70); Eosinophils % (Auto) 2.5 % (0.0-7.0); Hematocrit 28.2 % (34.1-44.9); Hemoglobin 8.8 g/dL (11.2-15.7); Lymphocytes # (Auto) 1.79 K/mcL (1.50-4.80); Lymphocytes % (Auto) 28.3 % (15.5-49.0); Mean Cell Volume 95.3 fL (80.0-100.0); Mean Corpuscular HGB Conc 31.2 g/dL (31.0-36.0); Monocytes # (Auto) 0.63 K/mcL (0.10-0.90); Platelet Count 187 K/mcL (140-440); RBC 2.96 M/mcL (3.59-5.38); WBC 6.3 K/mcL (4.5-11.0)
[2021-01-15] MEDS: ACETAMINOPHEN 325 MG TABLET PO PRN (07:27)
[2021-01-15] MEDS: INSULIN LISPRO 1 UNIT/0.01 ML UNIT SQ SCH ×4 (07:28→21:22)
[2021-01-15 07:33] LABS: ALT/SGPT 10 U/L (<40); AST/SGOT 15 U/L (<32); Albumin 3.2 gm/dL (3.2-5.2); Albumin/Globulin Ratio 1.3 (1.0-2.3); Alkaline Phosphatase 35 U/L (39-117); Bilirubin,Direct < 0.2 mg/dL (0-0.3); Bilirubin,Total 0.5 mg/dL (0.1-1.0); Blood Urea Nitrogen 13 mg/dL (8-23); Calcium 8.8 mg/dL (8.6-10.4); Carbon Dioxide 25 mmol/L (22-30); Chloride 104 mmol/L (96-108); Globulin 2.4 gm/dL (2.2-3.7); Glomerular Filtration Rate 87; Glucose 112 mg/dL (70-105); Lactate Dehydrogenase 153 U/L (135-225); Triglycerides 128 mg/dL (<150); Uric Acid 3.6 mg/dL (2.5-8.0)
[2021-01-15] MEDS: POTASSIUM CHLORIDE 10 MEQ TABLET PO SCH (08:07)
[2021-01-15] MEDS: sitaGLIPtin 50 MG TABLET PO SCH (08:08)
[2021-01-15] MEDS: MEMANTINE 10 MG TABLET PO SCH ×2 (08:08→21:38)
[2021-01-15] MEDS: MULTIVIT,THER IRON,CA,FA & MIN 1 TABLET PO SCH (08:08)
[2021-01-15] MEDS: DOCUSATE SODIUM 100 MG CAPSULE PO SCH ×2 (09:15→21:22)
--- NOTE | 2021-01-15 09:55 | Internal Med Progress Note ---
SUBJECTIVE Subjective Patient information: Note initiated : 01/15/21 at 9:53 am Service Date, if different from initiated Date: [] Patient: Fatimah Smith a 85 y/o F admitted on 01/13/21 for fall. Chief Complaint: [] Interval history: Ms. Smith is a 85 year old F with a history of dementia, A. fib on anticoagulation/pacemaker, generalized weakness who presented following a near syncopal episode today witnessed by son while she was trying to get out of chair. patient was recently in the ER for epistaxis earlier in the evening and after initial work-up/treatment was discharged home. While at home she started experiencing nasal bleed and has been pinching the nares. She apparently kept swallowing the postnasal blood drip and became extremely nauseous along with associated reddish bowel movement. She became extremely weak and slumped off the chair on the ground however did not lose consciousness. She was observed to be delirious by her son and prompting him to bring her back to the ER Initial work-up was consistent with persistent right nasal bleeding and underwent cauterization/nasal packing for epistaxis. Neuroimaging was unremarkable. hospitalist service was consulted for admission/observation and evaluation of cause of syncope. Patient is currently on anticoagulation apixaban At the time of my evaluation patient is minimally confused. She was able to answer some of the questions. She denies events leading to the episode. She denies headache, unilateral weakness, incontinence, seizure-like episode. She further denies chest pain, cough, fever 01/14-patient remains disoriented and confused. However epistaxis resolved. Resting comfortably. No overnight events, no concerns per staff. Stable hemodynamics and labs, hemoglobin down to 9.4, carotid Dopplers unremarkable, echo pending 01/15-patient doing well overnight no nasal bleed. Hemoglobin stable at 8.8. Melanotic stool likely from ingested blood. Alert lucid and well rested. Tolerating diet. No family at bedside. Discussed with son the previous day regarding goals of care. Will likely transition to SNF if continues to experience weakness versus home with home health in the next 24 hours. Constitutional Vitals: Vital Signs Temp Pulse Resp BP Pulse Ox 99.3 F H 69 20 103/56 96 01/15/21 08:00 01/15/21 08:00 01/15/21 08:00 01/15/21 08:00 01/15/21 08:00 Period Temp Pulse Resp BP Sys/Lo Pulse Ox Last 24 Hr 97.6 F-99.3 F 59-103 17-22 88-142/51-86 94-96 Intake and Output 01/14/21 01/15/21 01/15/21 21:59 05:59 13:59 Intake Total 300 250 Output Total 200 2 1 Balance 100 248 -1 Weight 96.116 kg resting comfortably Nonlabored breathing No further nasal bleed No lymphedema Intake & Output: Intake & Output 01/14/21 01/15/21 01/15/21 21:59 05:59 13:59 Intake Total 300 250 Output Total 200 2 1 Balance 100 248 -1 Weight 96.116 kg Intake: Oral 300 250 Output: Void Amount 200 # of times incontinent of urine 2 1 Other: Urine Appearance Clear Urine Color Dark Yellow # Voids 1 1 OBJ DATA Labs CBC & Chem 7: 01/15/21 05:47 01/15/21 05:47 Labs: Abnormal Lab Results 01/15/21 01/15/21 01/14/21 05:47 05:47 05:41 RBC 2.96 L Hgb 8.8 L Hct 28.2 L Creatinine 0.5 L 0.5 L Glucose 112 H 120 H Alkaline Phosphatase 35 L 37 L Total Protein 5.6 L 5.6 L Triglycerides 161 H 01/14/21 01/13/21 05:41 00:37 RBC 3.07 L Hgb 9.4 L Hct 27.9 L Creatinine Glucose 234 H Alkaline Phosphatase Total Protein Triglycerides Meds: Medications Acetaminophen (Acetaminophen 325 Mg Tablet) 650 mg PO Q4-6HP PRN; Protocol PRN Reason: Per Pain Protocol/Fever > 101 Last Admin: 01/15/21 07:27 Dose: 650 mg Documented by: Alendronate Sodium (Alendronate Sodium 70 Mg Tablet) 70 mg PO Q7D LEONA Atorvastatin Calcium (Atorvastatin 10 Mg Tablet) 10 mg PO HS LEONA Last Admin: 01/14/21 20:45 Dose: 10 mg Documented by: Bisacodyl (Bisacodyl 10 Mg Supp.Rect) 10 mg MN Q2-3DAYS PRN PRN Reason: Constipation Dextrose (Dextrose 50% 50 Ml Vial) 0 ml IV UD PRN PRN Reason: Hypoglycemia Diagnostic Test (Pha) (Accu-Chek 1 Each Strip) 1 each FS ACHS [facility] Last Admin: 01/15/21 07:25 Dose: 1 each Documented by: Docusate Sodium (Docusate Sodium 100 Mg Capsule) 100 mg PO BID [facility] Last Admin: 01/15/21 09:15 Dose: Not Given Documented by: Donepezil HCl (Donepezil 10 Mg Tablet) 10 mg PO HS [facility] Last Admin: 01/14/21 20:45 Dose: 10 mg Documented by: Glucose (Dextrose 31 Gm Oral.Susp) 15 gm PO PRN PRN PRN Reason: Hypoglycemia Guaifenesin/Codeine Phosphate (Guaifenesin/Codeine 10 Ml Udc) 10 ml PO Q4HP PRN PRN Reason: Cough Hydrochlorothiazide (Hydrochlorothiazide 12.5 Mg Capsule) 12.5 mg PO DAILY [facility] Last Admin: 01/14/21 10:19 Dose: 12.5 mg Documented by: Acetaminophen (Ofirmev) 650 mg in 65 mls @ 130 mls/hr IV Q6HP PRN; Protocol PRN Reason: Per Pain Protocol/Fever > 101 Magnesium Sulfate (Magnesium Sulfate) 2 gm in 50 mls @ 50 mls/hr IV UD PRN PRN Reason: MG = or < 1.7 Potassium Chloride 40 meq/ (Dextrose) 520 mls @ 130 mls/hr IV UD PRN PRN Reason: K+ = or < 3.5 Insulin Human Lispro (Insulin Lispro 1 Unit/0.01 Ml Unit) 0 unit SQ ACHS [facility]; Protocol Last Admin: 01/15/21 07:28 Dose: Not Given Documented by: Iron Carb/Multivit/Campbell/Folic Acid (Multivit,Ther Iron,Ca,Fa & Min 1 Tablet) 1 tab PO DAILY [facility] Last Admin: 01/15/21 08:08 Dose: 1 tab Documented by: Losartan Potassium (Losartan 50 Mg Tablet) 100 mg PO DAILY [facility] Last Admin: 01/14/21 10:16 Dose: 100 mg Documented by: Melatonin (Melatonin 3 Mg Tablet) 3 mg PO HSP PRN PRN Reason: Insomnia Last Admin: 01/14/21 20:46 Dose: 3 mg Documented by: Memantine (Memantine 10 Mg Tablet) 10 mg PO BID [facility] Last Admin: 01/15/21 08:08 Dose: 10 mg Documented by: Metoprolol Succinate (Metoprolol Succinate 50 Mg Tab.Xl.24h) 100 mg PO DAILY [facility] Last Admin: 01/14/21 10:17 Dose: 100 mg Documented by: Ondansetron HCl (Ondansetron 4 Mg Odt Tablet) 4 mg SL Q4-6HP PRN; Protocol PRN Reason: Nausea And Vomiting Ondansetron HCl (Ondansetron 4 Mg/2 Ml Vial) 4 mg IV Q4-6HP PRN; Protocol PRN Reason: Nausea And Vomiting Polyethylene Glycol (Polyethylene Glycol 3350 17 Gm Packet) 17 gm PO DAILYP PRN PRN Reason: Constipation Potassium Chloride (Potassium Chloride 10 Meq Tablet) [facility] Last Admin: 01/15/21 08:07 Dose: 20 meq Documented by: Senna/Docusate Sodium (Sennosides/Docusate Sodium 1 Tab Tablet) 1 tab PO [facility] Last Admin: 01/14/21 20:45 Dose: 1 tab Documented by: Sitagliptin Phosphate (Sitagliptin 50 Mg Tablet) 50 mg PO QDAY [facility] Last Admin: 01/15/21 08:08 Dose: 50 mg Documented by: Sodium Chloride (0.9 % Sodium Chloride 10 Ml Syringe) 10 ml IV Q8 [facility] Last Admin: 01/15/21 05:21 Dose: 10 ml Documented by: A/P Narrative A/P Narrative: * Syncope-likely secondary to blood loss anemia, resolved.Negative carotid Doppler, echo awaited * Epistaxis -spontaneous cessation noted. Anticoagulation on hold, can restart on discharge * History atrial fibrillation rate controlled on metoprolol * Blood loss anemia hemoglobin 9.4. No indication for transfusion. * History of hypertension continue losartan/thiazide/metoprolol * Dementia on memantine/donepezil * Anticoagulation for CVA prophylaxis currently held in light of nasal bleed, restart in 24 to 48 hours * Prophylax SCDs Plan * Hold anticoagulation until discharge * Pre-existing medical condition management home medications * Nutrition support/physical therapy * Discharge in 24 hours to SNF versus home with home health depending on physical therapy eval Time Spent With Patient Time: Total time spent is greater than 50% in coordination of care (as documented) at patient's floor/unit and/or counseling patient:
[2021-01-15] MEDS: HYDROCHLOROTHIAZIDE 12.5 MG CAPSULE PO SCH (10:30)
[2021-01-15] MEDS: METOPROLOL SUCCINATE 50 MG TAB.XL.24H PO SCH (10:30)
[2021-01-15] MEDS: LOSARTAN 50 MG TABLET PO SCH (10:30)
[2021-01-15] MEDS: ACETAMINOPHEN 500 MG TABLET PO PRN ×2 (12:10→21:38)
--- NOTE | 2021-01-15 13:30 | EKG ---
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 Cannot determine mechanism Prolonged ID interval IVCD and secondary repol abnrm Baseline wander in lead(s) III,aVF Electronically Signed On 01-15-2021 13:29:43 PST by Darwin Amador /[id number]
[2021-01-15] MEDS: SENNOSIDES/DOCUSATE SODIUM 1 TAB TABLET PO SCH (21:23)
[2021-01-15] MEDS: DONEPEZIL 10 MG TABLET PO SCH (21:38)
[2021-01-15] MEDS: ATORVASTATIN 10 MG TABLET PO SCH (21:38)
[2021-01-15] MEDS: MELATONIN 3 MG TABLET PO PRN (21:38)
[2021-01-16] MEDS: 0.9 % SODIUM CHLORIDE 10 ML SYRINGE IV SCH ×2 (04:17→12:01)
[2021-01-16 07:42] LABS: Basophils # (Auto) 0.02 K/mcL (0.00-0.30); Basophils % (Auto) 0.4 % (0.0-2.0); Eosinophils # (Auto) 0.16 K/mcL (0.00-0.70); Eosinophils % (Auto) 3.2 % (0.0-7.0); Hemoglobin 8.9 g/dL (11.2-15.7); Lymphocytes # (Auto) 1.52 K/mcL (1.50-4.80); Lymphocytes % (Auto) 30.8 % (15.5-49.0); Mean Cell Volume 92.5 fL (80.0-100.0); Mean Platelet Volume 10.1 fL (7.4-10.4); Monocytes # (Auto) 0.35 K/mcL (0.10-0.90); Monocytes % (Auto) 7.1 % (1.0-12.0); Neutrophils % (Auto) 58.5 % (38.0-78.0); Platelet Count 196 K/mcL (140-440); RBC 2.92 M/mcL (3.59-5.38); WBC 4.9 K/mcL (4.5-11.0)
[2021-01-16] MEDS: sitaGLIPtin 50 MG TABLET PO SCH (08:02)
[2021-01-16] MEDS: MEMANTINE 10 MG TABLET PO SCH ×2 (08:02→21:05)
[2021-01-16] MEDS: POTASSIUM CHLORIDE 10 MEQ TABLET PO SCH (08:02)
[2021-01-16] MEDS: MULTIVIT,THER IRON,CA,FA & MIN 1 TABLET PO SCH (08:02)
[2021-01-16 08:07] LABS: ALT/SGPT 10 U/L (<40); AST/SGOT 16 U/L (<32); Albumin 3.4 gm/dL (3.2-5.2); Albumin/Globulin Ratio 1.5 (1.0-2.3); Alkaline Phosphatase 39 U/L (39-117); Bilirubin,Direct < 0.2 mg/dL (0-0.3); Bilirubin,Total 0.4 mg/dL (0.1-1.0); Blood Urea Nitrogen 10 mg/dL (8-23); Calcium 8.8 mg/dL (8.6-10.4); Carbon Dioxide 26 mmol/L (22-30); Chloride 106 mmol/L (96-108); Globulin 2.3 gm/dL (2.2-3.7); Glomerular Filtration Rate 82; Glucose 108 mg/dL (70-105); Lactate Dehydrogenase 172 U/L (135-225); Phosphorous 3.1 mg/dL (2.5-4.5); Triglycerides 134 mg/dL (<150); Uric Acid 3.6 mg/dL (2.5-8.0)
[2021-01-16] MEDS: INSULIN LISPRO 1 UNIT/0.01 ML UNIT SQ SCH ×4 (08:18→21:07)
--- NOTE | 2021-01-16 10:12 | Discharge Summary ---
Discharge Provider Provider Patient information: Note initiated : 01/17/21 at 10:09 am Service Date, if different from initiated Date: [] Patient: Fatimah Smith 85 y/o F admitted on 01/13/21 for fall. Chief Complaint: [] Date of admission: 01/13/21 04:47 Discharge date: 01/17/21 Primary care physician: LYNDA Arango Consults: 01/13/21 Consult to Physician [CONS] Stat Comment: Consulting Provider: Adrian Addison Reason For Exam: Physician to Consult 01/15/21 14:39 Consult to Physician [CONS] Routine Comment: snf referral Consulting Provider: [facility] Reason For Exam: Physician to Consult Discharge Meds Discharge Medications Home Medications nitroglycerin 0.4 mg sublingual tablet 0.4 mg SL PRN PRN 06/28/17 [History Confirmed 01/13/21 Last Taken 09/07/17] apixaban 5 mg tablet 5 mg PO BID 10/22/17 [History Confirmed 01/13/21 Last Taken 01/12/21 09:00 5 mg] omega-3 fatty acids-fish oil 1 caplet PO QDAY 10/16/18 [History Confirmed 01/13/21 Last Taken Unknown] donepezil 5 mg tablet 10 mg PO QDAY tab 04/14/19 [History Confirmed 01/13/21 Last Taken Unknown] memantine 10 mg tablet 10 mg PO BID 07/14/19 [History Confirmed 01/13/21 Last Taken 01/12/21 15:00] potassium chloride 10 mEq tablet,extended release 20 meq PO DAILY tab 07/14/19 [History Confirmed 01/13/21 Last Taken 01/12/21 09:00] blood sugar diagnostic (Contour Next Test Strips) #50 each 09/20/20 [Rx Confirm ed 01/15/21 Last Taken Unknown] blood-glucose meter #1 each 09/20/20 [Rx Confirmed 01/15/21 Last Taken Unknown] alendronate 70 mg tablet 70 mg PO QWEEK #14 tab 09/29/20 [Rx Confirmed 01/13/21 Last Taken Unknown] sitagliptin 50 mg tablet (Januvia) 50 mg PO QDAY #30 tab 11/17/20 [Rx Confirmed 01/13/21 Last Taken 01/12/21 09:00] losartan 100 mg-hydrochlorothiazide 12.5 mg tablet See Rx Instructions .ROUTE .COMPLEX #90 tab 12/14/20 [Rx Confirmed 01/13/21 Last Taken Unknown] atorvastatin 10 mg tablet See Rx Instructions .ROUTE .COMPLEX #30 tab 01/10/21 [Rx Confirmed 01/13/21 Last Taken Unknown] metoprolol succinate 100 mg tablet,extended release 24 hr See Rx Instructions .ROUTE .COMPLEX #30 tab 01/10/21 [Rx Confirmed 01/13/21 Last Taken 01/12/21 03:00] oxybutynin chloride 10 mg tablet,extended release 24 hr See Rx Instructions .ROUTE .COMPLEX #30 tab 01/10/21 [Rx Confirmed 01/13/21 Last Taken 01/12/21 09:00] COURSE Hospital Course Hospital course: Discharge diagnosis * Syncope-likely secondary to blood loss anemia, resolved. Negative carotid Doppler * Epistaxis -spontaneous cessation noted. Anticoagulation temporarily held * History atrial fibrillation rate controlled on metoprolol * DM type II continue home dose Januvia/CC diet * Blood loss anemia hemoglobin hemoglobin stable at 8.9. * History of hypertension stable on home dose losartan/thiazide/metoprolol * Dementia stable on memantine/donepezil * Anticoagulation for CVA prophylaxis held in light of nasal bleed, restart in 24 hours Brief hospital course Ms. Smith is a 85 year old F with a history of dementia, A. fib on anticoagulation/pacemaker, generalized weakness who presented following a near syncopal episode today witnessed by son while she was trying to get out of chair. patient was recently in the ER for epistaxis earlier in the evening and after initial work-up/treatment was discharged home. While at home she started experiencing nasal bleed and has been pinching the nares. She apparently kept swallowing the postnasal blood drip and became extremely nauseous along with associated reddish bowel movement. She became extremely weak and slumped off the chair on the ground however did not lose consciousness. She was observed to be delirious by her son and prompting him to bring her back to the ER Initial work-up was consistent with persistent right nasal bleeding and underwent cauterization/nasal packing for epistaxis. Neuroimaging was unremarkable. hospitalist service was consulted for admission/observation and evaluation of cause of syncope. Patient is currently on anticoagulation apixaban At the time of my evaluation patient is minimally confused. She was able to answer some of the questions. She denies events leading to the episode. She denies headache, unilateral weakness, incontinence, seizure-like episode. She further denies chest pain, cough, fever 01/14-patient remains disoriented and confused. However epistaxis resolved. Resting comfortably. No overnight events, no concerns per staff. Stable hemodynamics and labs, hemoglobin down to 9.4, carotid Dopplers unremarkable, echo pending 01/15-patient doing well overnight no nasal bleed. Hemoglobin stable at 8.8. Melanotic stool likely from ingested blood. Alert lucid and well rested. Tolerating diet. No family at bedside. Discussed with son the previous day regarding goals of care. Will likely transition to SNF if continues to experience weakness versus home with home health in the next 24 hours. 01/16-patient doing a lot better. No overnight fever chills or bleeding. Ongoing therapies. Tolerating diet. Due for SNF placement. Likely in 24 hours. Continue existing treatments. Stable labs and hemodynamics. Hemoglobin 8.9 01/17-patient doing well. No further bleeding noted. Restart anticoagulation in 24 hours. No overnight fever chills or concerns per staff. discharging to SNF for continued rehab. Tolerating diet. Mentation at baseline. Stable labs and hemodynamics. Hemoglobin uptrending at 8.9 Discharge diagnosis: Epistaxis/syncope Time Spent with Patient Time attestation: Total time spent providing and/or coordinating discharge services: EXAM Constitutional Vitals: Temp Pulse Resp BP Pulse Ox 98.8 F 64 15 154/69 94 01/16/21 07:18 01/16/21 08:00 01/16/21 07:18 01/16/21 08:00 01/16/21 07:18 Discharge Data Data Completed and Pending Labs on day of discharge: Labs from last 24 hours 01/16/21 01/16/21 05:52 05:52 WBC 4.9 RBC 2.92 L Hgb 8.9 L Hct 27.0 L MCV 92.5 MCH 30.5 MCHC 33.0 RDW 13.0 Plt Count 196 MPV 10.1 Neut % (Auto) 58.5 Lymph % (Auto) 30.8 Frio % (Auto) 7.1 Eos % (Auto) 3.2 Baso % (Auto) 0.4 Lymph # (Auto) 1.52 Frio # (Auto) 0.35 Eos # (Auto) 0.16 Baso # (Auto) 0.02 Absolute Neutrophils 2.88 Sodium 142 Potassium 3.4 Chloride 106 Carbon Dioxide 26 Anion Gap 10.0 BUN 10 Creatinine 0.6 GFR Calculation 82 Glucose 108 H Uric Acid 3.6 Calcium 8.8 Phosphorus 3.1 Magnesium 1.9 Total Bilirubin 0.4 Direct Bilirubin < 0.2 GGT 8 AST 16 ALT 10 Alkaline Phosphatase 39 Lactate Dehydrogenase 172 Total Protein 5.7 L Albumin 3.4 Globulin 2.3 Albumin/Globulin Ratio 1.5 Triglycerides 134 Discharge Plan Patient/Caregiver Discharge Instructions Activity: increase activity as tolerated Diet: Consistent Carbohydrate Activity Restrictions/Additional Instructions: Continue PT OT Restart anticoagulation in 24 hours Maintain fall risk Nutrition support CC diet Prescriptions: Continued donepezil 5 mg tablet 10 mg PO QDAY 0RF Label Comments: Dr. Jones memantine 10 mg tablet 10 mg PO BID 0RF Label Comments: Dr. Jones ([facility]) Contour Next Test Strips Strip See Rx Instructions .ROUTE .MEDSUPPLY Qty: 50 2RF Rx Instructions: TEST BLOOD SUGAR ONCE A DAY. DX: R73.03, Non Insulin Dependent ([facility] [place]) blood-glucose meter Kit See Rx Instructions .ROUTE .MEDSUPPLY Qty: 1 0RF Rx Instructions: TEST BLOOD SUGAR ONCE A DAY alendronate 70 mg tablet 70 mg PO QWEEK Qty: 14 3RF Januvia 50 mg tablet 50 mg PO QDAY Qty: 30 2RF losartan-hydrochlorothiazide 100-12.5 mg tablet See Rx Instructions .ROUTE .COMPLEX Qty: 90 1RF Dose Instruction: TAKE ONE TABLET BY MOUTH EVERY DAY Rx Instructions: TAKE ONE TABLET BY MOUTH EVERY DAY atorvastatin 10 mg tablet See Rx Instructions .ROUTE .COMPLEX Qty: 30 3RF Dose Instruction: TAKE ONE TABLET BY MOUTH DAILY Rx Instructions: TAKE ONE TABLET BY MOUTH DAILY oxybutynin chloride 10 mg tablet extended release 24hr See Rx Instructions .ROUTE .COMPLEX Qty: 30 3RF Dose Instruction: TAKE 1 TABLET BY MOUTH EVERY DAY Rx Instructions: TAKE 1 TABLET BY MOUTH EVERY DAY metoprolol succinate 100 mg tablet extended release 24 hr See Rx Instructions .ROUTE .COMPLEX Qty: 30 3RF Dose Instruction: TAKE ONE TABLET BY MOUTH DAILY Rx Instructions: TAKE ONE TABLET BY MOUTH DAILY omega-3 fatty acids-fish oil 1 caplet PO QDAY 0RF nitroglycerin 0.4 MG tablet, sublingual 0.4 mg SL PRN PRN (Reason: Chest Pain) 0RF potassium chloride 10 mEq tablet extended release 20 meq PO DAILY 0RF apixaban 5 MG tablet 5 mg PO BID 0RF Follow Up Plan Follow up with: Brenda Ruff ARNP [Nurse Practitioner] - 01/24/21 2:30 pm Patient Disposition: Xfer SNF Prognosis: Fair Rehab Potential: Fair I certify that the patient requires SNF services: Yes Overall status at discharge: patient is progressing back to baseline Discharge Orders: Discharge Order (Routine); Ordered 01/17/21 Ordered By: Adrian Addison
[2021-01-16] MEDS: METOPROLOL SUCCINATE 50 MG TAB.XL.24H PO SCH (10:18)
[2021-01-16] MEDS: LOSARTAN 50 MG TABLET PO SCH (10:18)
[2021-01-16] MEDS: DOCUSATE SODIUM 100 MG CAPSULE PO SCH ×2 (10:18→21:08)
[2021-01-16] MEDS: HYDROCHLOROTHIAZIDE 12.5 MG CAPSULE PO SCH (10:18)
[2021-01-16] MEDS: ACETAMINOPHEN 500 MG TABLET PO PRN ×2 (14:34→21:06)
--- NOTE | 2021-01-16 15:50 | Internal Med Progress Note ---
SUBJECTIVE Subjective Patient information: Note initiated : 01/16/21 at 3:47 pm Service Date, if different from initiated Date: [] Patient: Fatimah Smith a 85 y/o F admitted on 01/13/21 for fall. Chief Complaint: [] Interval history: Ms. Smith is a 85 year old F with a history of dementia, A. fib on anticoagulation/pacemaker, generalized weakness who presented following a near syncopal episode today witnessed by son while she was trying to get out of chair. patient was recently in the ER for epistaxis earlier in the evening and after initial work-up/treatment was discharged home. While at home she started experiencing nasal bleed and has been pinching the nares. She apparently kept swallowing the postnasal blood drip and became extremely nauseous along with associated reddish bowel movement. She became extremely weak and slumped off the chair on the ground however did not lose consciousness. She was observed to be delirious by her son and prompting him to bring her back to the ER Initial work-up was consistent with persistent right nasal bleeding and underwent cauterization/nasal packing for epistaxis. Neuroimaging was unremarkable. hospitalist service was consulted for admission/observation and evaluation of cause of syncope. Patient is currently on anticoagulation apixaban At the time of my evaluation patient is minimally confused. She was able to answer some of the questions. She denies events leading to the episode. She denies headache, unilateral weakness, incontinence, seizure-like episode. She further denies chest pain, cough, fever 01/14-patient remains disoriented and confused. However epistaxis resolved. Resting comfortably. No overnight events, no concerns per staff. Stable hemodynamics and labs, hemoglobin down to 9.4, carotid Dopplers unremarkable, echo pending 01/15-patient doing well overnight no nasal bleed. Hemoglobin stable at 8.8. Melanotic stool likely from ingested blood. Alert lucid and well rested. Tolerating diet. No family at bedside. Discussed with son the previous day regarding goals of care. Will likely transition to SNF if continues to experience weakness versus home with home health in the next 24 hours. 01/16-patient doing a lot better. No overnight fever chills or bleeding. Ongoing therapies. Tolerating diet. Due for SNF placement. Likely in 24 hours. Continue existing treatments. Stable labs and hemodynamics. Hemoglobin 8.9 Constitutional Vitals: Vital Signs Temp Pulse Resp BP Pulse Ox 97.5 F 82 16 128/76 94 01/16/21 11:33 01/16/21 11:33 01/16/21 11:33 01/16/21 11:33 01/16/21 11:33 Period Temp Pulse Resp BP Sys/Lo Pulse Ox Last 24 Hr 97.2 F-98.9 F 60-82 15-18 100-154/52-78 93-95 Intake and Output 01/16/21 01/16/21 01/16/21 05:59 13:59 21:59 Intake Total 500 200 Output Total 102 400 Balance 398 -200 Weight 97.976 kg Patient Weight 01/17/21 05:59 Weight 97.976 kg alert and respond to commands Nonlabored breathing No pallor No lymphedema Intake & Output: Intake & Output 01/16/21 01/16/21 01/16/21 05:59 13:59 21:59 Intake Total 500 200 Output Total 102 400 Balance 398 -200 Weight 97.976 kg Intake: Oral 500 200 Output: Void Amount 100 400 # of times incontinent of urine 2 Other: Meal Breakfast Percent of Meal Consumed 100% Feeding Ability Independent Urine Appearance Clear Clear Urine Color Straw Bright Yellow Urine Odor Normal Stool Size Smear Moderate Stool Color Dark Red Blood Black Dark Red Blood OBJ DATA Labs CBC & Chem 7: 01/16/21 05:52 01/16/21 05:52 Labs: Abnormal Lab Results 01/16/21 01/16/21 01/15/21 05:52 05:52 05:47 RBC 2.92 L Hgb 8.9 L Hct 27.0 L Creatinine 0.5 L Glucose 108 H 112 H Alkaline Phosphatase 35 L Total Protein 5.7 L 5.6 L Triglycerides 01/15/21 01/14/21 01/14/21 05:47 05:41 05:41 RBC 2.96 L 3.07 L Hgb 8.8 L 9.4 L Hct 28.2 L 27.9 L Creatinine 0.5 L Glucose 120 H Alkaline Phosphatase 37 L Total Protein 5.6 L Triglycerides 161 H Meds: Medications Acetaminophen (Acetaminophen 500 Mg Tablet) 1,000 mg PO Q4-6HP PRN; Protocol PRN Reason: Per Pain Protocol/Fever > 101 Last Admin: 01/16/21 14:34 Dose: 1,000 mg Documented by: Alendronate Sodium (Alendronate Sodium 70 Mg Tablet) 70 mg PO Q7D [facility] Atorvastatin Calcium (Atorvastatin 10 Mg Tablet) 10 mg PO HS [facility] Last Admin: 01/15/21 21:38 Dose: 10 mg Documented by: Bisacodyl (Bisacodyl 10 Mg Supp.Rect) 10 mg AL Q2-3DAYS PRN PRN Reason: Constipation Dextrose (Dextrose 50% 50 Ml Vial) 0 ml IV UD PRN PRN Reason: Hypoglycemia Diagnostic Test (Pha) (Accu-Chek 1 Each Strip) 1 each FS ACHS [facility] Last Admin: 01/16/21 12:00 Dose: 1 each Documented by: Docusate Sodium (Docusate Sodium 100 Mg Capsule) 100 mg PO BID [facility] Last Admin: 01/16/21 10:18 Dose: Not Given Documented by: Donepezil HCl (Donepezil 10 Mg Tablet) 10 mg PO HS [facility] Last Admin: 01/15/21 21:38 Dose: 10 mg Documented by: Glucose (Dextrose 31 Gm Oral.Susp) 15 gm PO PRN PRN PRN Reason: Hypoglycemia Guaifenesin/Codeine Phosphate (Guaifenesin/Codeine 10 Ml Udc) 10 ml PO Q4HP PRN PRN Reason: Cough Hydrochlorothiazide (Hydrochlorothiazide 12.5 Mg Capsule) 12.5 mg PO DAILY [facility] Last Admin: 01/16/21 10:18 Dose: Not Given Documented by: Acetaminophen (Ofirmev) 650 mg in 65 mls @ 130 mls/hr IV Q6HP PRN; Protocol PRN Reason: Per Pain Protocol/Fever > 101 Magnesium Sulfate (Magnesium Sulfate) 2 gm in 50 mls @ 50 mls/hr IV UD PRN PRN Reason: MG = or < 1.7 Potassium Chloride 40 meq/ (Dextrose) 520 mls @ 130 mls/hr IV UD PRN PRN Reason: K+ = or < 3.5 Insulin Human Lispro (Insulin Lispro 1 Unit/0.01 Ml Unit) 0 unit SQ [facility]; Protocol Last Admin: 01/16/21 12:00 Dose: 1 unit Documented by: Iron Carb/Multivit/[place]/Folic Acid (Multivit,Ther Iron,Ca,Fa & Min 1 Tablet) 1 tab PO DAILY [facility] Last Admin: 01/16/21 08:02 Dose: 1 tab Documented by: Losartan Potassium (Losartan 50 Mg Tablet) 100 mg PO DAILY [facility] Last Admin: 01/16/21 10:18 Dose: Not Given Documented by: Melatonin (Melatonin 3 Mg Tablet) 3 mg PO HSP PRN PRN Reason: Insomnia Last Admin: 01/15/21 21:38 Dose: 3 mg Documented by: Memantine (Memantine 10 Mg Tablet) 10 mg PO BID [facility] Last Admin: 01/16/21 08:02 Dose: 10 mg Documented by: Metoprolol Succinate (Metoprolol Succinate 50 Mg Tab.Xl.24h) 100 mg PO DAILY [facility] Last Admin: 01/16/21 10:18 Dose: Not Given Documented by: Ondansetron HCl (Ondansetron 4 Mg Odt Tablet) 4 mg SL Q4-6HP PRN; Protocol PRN Reason: Nausea And Vomiting Ondansetron HCl (Ondansetron 4 Mg/2 Ml Vial) 4 mg IV Q4-6HP PRN; Protocol PRN Reason: Nausea And Vomiting Polyethylene Glycol (Polyethylene Glycol 3350 17 Gm Packet) 17 gm PO DAILYP PRN PRN Reason: Constipation Potassium Chloride (Potassium Chloride 10 Meq Tablet) 20 meq PO [facility] Last Admin: 01/16/21 08:02 Dose: 20 meq Documented by: Senna/Docusate Sodium (Sennosides/Docusate Sodium 1 Tab Tablet) 1 tab PO [facility] Last Admin: 01/15/21 21:23 Dose: Not Given Documented by: Sitagliptin Phosphate (Sitagliptin 50 Mg Tablet) 50 mg PO QDAY [facility] Last Admin: 01/16/21 08:02 Dose: 50 mg Documented by: Sodium Chloride (0.9 % Sodium Chloride 10 Ml Syringe) 10 ml IV Q8 [facility] Last Admin: 01/16/21 12:01 Dose: 10 ml Documented by: A/P Narrative A/P Narrative: * Syncope-likely secondary to blood loss anemia, no further episodes. * Epistaxis -spontaneous cessation noted. Continue apixaban on hold * History atrial fibrillation rate controlled on metoprolol * Blood loss anemia hemoglobin 9.4. No indication for transfusion. * History of hypertension stable on losartan/thiazide/metoprolol * Dementia on memantine/donepezil * Anticoagulation for CVA prophylaxis currently on hold * Prophylax SCDs Plan * Hold anticoagulation until discharge * Pre-existing medical condition management home medications * Nutrition support/physical therapy * Await SNF placement Time Spent With Patient Time: Total time spent is greater than 50% in coordination of care (as documented) at patient's floor/unit and/or counseling patient: Total time spent with greater than 50% in coordination of care (as documented) at patient's floor/unit and/or counseling patient:: 25 - 35 minutes
[2021-01-16] MEDS: DONEPEZIL 10 MG TABLET PO SCH (21:05)
[2021-01-16] MEDS: ATORVASTATIN 10 MG TABLET PO SCH (21:05)
[2021-01-16] MEDS: SENNOSIDES/DOCUSATE SODIUM 1 TAB TABLET PO SCH (21:08)
[2021-01-17] MEDS: 0.9 % SODIUM CHLORIDE 10 ML SYRINGE IV SCH ×2 (02:07→05:11)
[2021-01-17 07:10] LABS: Basophils # (Auto) 0.01 K/mcL (0.00-0.30); Basophils % (Auto) 0.2 % (0.0-2.0); Eosinophils % (Auto) 4.5 % (0.0-7.0); Hematocrit 26.9 % (34.1-44.9); Lymphocytes # (Auto) 1.48 K/mcL (1.50-4.80); Mean Cell Volume 91.5 fL (80.0-100.0); Mean Corpuscular HGB Conc 33.5 g/dL (31.0-36.0); Mean Platelet Volume 10.1 fL (7.4-10.4); Monocytes # (Auto) 0.35 K/mcL (0.10-0.90); Monocytes % (Auto) 7.8 % (1.0-12.0); Neutrophils % (Auto) 54.5 % (38.0-78.0); Platelet Count 226 K/mcL (140-440); RBC 2.94 M/mcL (3.59-5.38); WBC 4.5 K/mcL (4.5-11.0)
[2021-01-17 07:39] LABS: ALT/SGPT 11 U/L (<40); AST/SGOT 15 U/L (<32); Albumin 3.4 gm/dL (3.2-5.2); Albumin/Globulin Ratio 1.4 (1.0-2.3); Alkaline Phosphatase 40 U/L (39-117); Bilirubin,Direct < 0.2 mg/dL (0-0.3); Bilirubin,Total 0.4 mg/dL (0.1-1.0); Blood Urea Nitrogen 14 mg/dL (8-23); Calcium 8.7 mg/dL (8.6-10.4); Carbon Dioxide 26 mmol/L (22-30); Chloride 106 mmol/L (96-108); Globulin 2.5 gm/dL (2.2-3.7); Glomerular Filtration Rate 82; Glucose 109 mg/dL (70-105); Lactate Dehydrogenase 247 U/L (135-225); Phosphorous 2.7 mg/dL (2.5-4.5); Triglycerides 126 mg/dL (<150); Uric Acid 3.5 mg/dL (2.5-8.0)
[2021-01-17] MEDS: INSULIN LISPRO 1 UNIT/0.01 ML UNIT SQ SCH (08:09)
[2021-01-17] MEDS ORDERED: ALENDRONATE SODIUM 70 MG TABLET PO SCH (09:00)
[2021-01-17] MEDS: sitaGLIPtin 50 MG TABLET PO SCH (09:41)
[2021-01-17] MEDS: MEMANTINE 10 MG TABLET PO SCH (09:41)
[2021-01-17] MEDS: MULTIVIT,THER IRON,CA,FA & MIN 1 TABLET PO SCH (09:41)
[2021-01-17] MEDS: POTASSIUM CHLORIDE 10 MEQ TABLET PO SCH (09:41)
[2021-01-17] MEDS: HYDROCHLOROTHIAZIDE 12.5 MG CAPSULE PO SCH (09:41)
[2021-01-17] MEDS: DOCUSATE SODIUM 100 MG CAPSULE PO SCH (09:41)
[2021-01-17] MEDS: METOPROLOL SUCCINATE 50 MG TAB.XL.24H PO SCH (09:41)
[2021-01-17] MEDS: LOSARTAN 50 MG TABLET PO SCH (09:42)
== END 2021-01-17 11:20 ==
LOC: MEDSUR 00:12 → ED 00:12 → MEDSUR 04:46
PROVIDERS: ADMIT Internal Medicine; ATTEND Internal Medicine